=== PATIENT | male | born 1980 | race Caucasian/White ===

== ENCOUNTER 2017-04-25 18:28 | Emergency (ER) | payer BC ==
--- NOTE | 2017-04-25 20:10 | UC ---
General HPI - HPI Summary HPI Summary: pt is c/o chest congestion, wheezing and dry cough. He admits to sob with exertion. He denies cp but notes his lungs feel tight. He has a hx of htn but no DM, high cholesterol, heart or lung disease. no premature CAD in family. - History of Current Complaint Hx Obtained From: Patient Onset/Duration: Gradual Onset Timing: Constant Pain Intensity: 0 Alleviating: nothing Associated Signs & Symptoms: Positive: Cough, SOB, Wheezing. Negative: Chest Pain, Diaphoresis, Fever, Headache, Syncope <Angelic Rogel - Last Filed: 04/25/17 20:04> <Kristi Guillen - Last Filed: 04/25/17 21:49> - History of Current Complaint Chief Complaint: UCRespiratory Stated Complaint: COUGH/CONGESTION Time Seen by Provider: 04/25/17 20:01 - Allergy/Home Medications Allergies/Adverse Reactions: Allergies Allergy/AdvReac Type Severity Reaction Status Date / Time Penicillins AdvReac Vomiting Verified 04/25/17 18:39 Home Medications: Home Medications Ibuprofen TAB* [Advil TAB*] 600 mg PO Q6H PRN 04/25/17 [History Confirmed ] [email or web address] ER TAB [Mucinex*] 600 mg PO BID PRN 04/25/17 [History Confirmed 06/09] PMH/Surg Hx/FS Hx/Imm Hx - Additional Past Medical History Additional PMH: "white coat hypertension" - Surgical History Surgical History: None - Family History Known Family History: Positive: Cardiac Disease - Social History Occupation: Employed Full-time Lives: With Family Alcohol Use: Weekly Substance Use Type: None Smoking Status (MU): Former Smoker Type: Smokeless Tobacco Amount Used/How Often: ONE CAN/WK Length of Time of Smoking/Using Tobacco: 15 YRS Have You Smoked in the Last Year: Yes - Immunization History Vaccination Up to Date: Yes <Angelic Rogel - Last Filed: 04/25/17 20:04> Review of Systems Constitutional: Negative Skin: Negative Eyes: Negative ENT: Negative Respiratory: Shortness Of Breath, Cough Cardiovascular: Negative Gastrointestinal: Negative Genitourinary: Negative Motor: Negative Neurovascular: Negative Musculoskeletal: Negative Neurological: Negative Psychological: Negative Is Patient Immunocompromised?: No All Other Systems Reviewed And Are Negative: Yes <Angelic Rogel - Last Filed: 04/25/17 20:04> Physical Exam Triage Information Reviewed: Yes Appearance: Well-Appearing Vital Signs: Initial Vital Signs Temp 98.5 F 04/25/17 18:41 Pulse 106 04/25/17 18:41 Resp 16 04/25/17 18:41 BP 202/81 04/25/17 18:41 Pulse Ox 99 04/25/17 18:41 Vital Signs Reviewed: Yes Eyes: Positive: Conjunctiva Clear ENT: Positive: Pharynx normal, TMs normal. Negative: Pharyngeal erythema, Nasal drainage Neck: Positive: Supple, Nontender Respiratory: Positive: Lungs clear, No respiratory distress, Decreased breath sounds Cardiovascular: Positive: RRR, No Murmur Bowel Sounds: Positive: Present Musculoskeletal: Positive: No Edema Neurological: Positive: Alert Psychological: Positive: Age Appropriate Behavior Skin Exam: Normal <Angelic Rogel - Last Filed: 04/25/17 20:04> Vital Signs: Initial Vital Signs Temp 98.5 F 04/25/17 18:41 Pulse 106 04/25/17 18:41 Resp 16 04/25/17 18:41 BP 202/81 04/25/17 18:41 Pulse Ox 99 04/25/17 18:41 <Kristi Guillen - Last Filed: 04/25/17 21:49> Diagnostics - Radiology No standard instances Xray Interpretation: No Acute Changes Radiology Interpretation Completed By: Radiologist - EKG Cardiac Rate: NL Cardiac Rhythm: Sinus: Normal Ectopy: None ST Segment: Normal <Angelic Rogel - Last Filed: 04/25/17 20:04> Re-Evaluation - Re-Evaluation Second Eval Re-Evaluation Time: 21:08 Change: Improved - BP 120/80 manual R arm. lungs have improved aeration. pt notes no tightness in lung after neb tx. <Angelic Rogel - Last Filed: 04/25/17 20:04> Course/Dx - Course Course Of Treatment: Initial BP done over pt's clothing. Repeat BP improved. Pt has no hx htn. EKG=unremarkable, cxr=nad, aeration and subjective s/s's improved with bronchodilator. low concern for acs. will tx with albuterol mdi and close f/u, refering to 's pcp. - Differential Dx - Multi-Symptom Provider Diagnoses: bronchitis <Angelic Rogel - Last Filed: 04/25/17 20:04> Discharge <Angelic Rogel - Last Filed: 04/25/17 20:04> <Kristi Guillen - Last Filed: 04/25/17 21:49> - Discharge Plan Condition: Improved Disposition: HOME Prescriptions: Albuterol HFA INHALER* [Ventolin HFA Inhaler*] 2 puff INH Q6H 14 Days #1 mdi Patient Education Materials: Acute Bronchitis (ED), Bronchospasm (ED) Referrals: Christelle Vargas MD [Medical Doctor] - As Soon As Possible Additional Instructions: GO TO ER FOR ANY CHANGES OR WORSENING. Attestation Statement User Type: Provider - I was available for consult. This patient was seen by the advanced practice provider. The patient was not presented to, seen by, or examined by me.-Jaylyn <Kristi Guillen - Last Filed: 04/25/17 21:49>
[2017-04-25] MEDS ORDERED: Albuterol 2.5 MG/3 ML NEB.SOL* (0.083%) INH ONE (20:13)
--- NOTE | 2017-04-25 20:33 | RAD ---
INDICATION: Cough COMPARISON: None TECHNIQUE: PA and lateral dual-energy views were obtained. FINDINGS: Bones/Soft Tissues: There are no acute bony findings. Cardiomediastinal: The cardiomediastinal silhouette is normal. Lungs: There are no infiltrates. Pleura: There are no pleural effusions. Other: None IMPRESSION: NO ACTIVE DISEASE.
== END 2017-04-25 21:24 | disposition home or self-care (01) ==
LOC: UCCORT 18:28
DX: J40 Bronchitis, not specified as acute or chronic (principal); Z88.0 Allergy status to penicillin; Z87.891 Personal history of nicotine dependence
CPT/HCPCS: 71046; 93005; 99202; G0463